=== PATIENT | female | born 1965 | race Caucasian/White ===

== ENCOUNTER 2016-08-26 08:53 | Emergency (ER) | payer OTHER ==
[~2016-08-26 08:53] MED LIST: NO HOME MEDS
[2016-08-26] MEDS ORDERED: RIZATRIPTAN10 M3 PO (09:09)
[2016-08-26] MEDS ORDERED: CLONAZEPAM0.5 M2 PO (09:10)
[2016-08-26] MEDS ORDERED: LEXAPRO10 M2 PO (09:10)
[2016-08-26] MEDS ORDERED: NEURONTIN300 M1 (09:11)
[2016-08-26] MEDS ORDERED: LAMICTAL100 M2 PO (09:11)
== END 2016-08-26 10:00 ==
LOC: EDMED 08:53
DX: R42 Dizziness and giddiness (principal); R09.89 Other specified symptoms and signs involving the circulatory and respiratory systems; F41.9 Anxiety disorder, unspecified; F17.200 Nicotine dependence, unspecified, uncomplicated; Z79.899 Other long term (current) drug therapy
CPT/HCPCS: J7512